=== PATIENT | male | born 1990 | race Caucasian/White ===

== ENCOUNTER 2016-11-13 11:37 | Inpatient (IN) | payer MEDICAID ==
[2016-11-13 12:18] LABS: BASO # 0.1 K/uL (0.0-0.2); BASO % 0.9 % (0.0-2.0); EOS # 0.5 K/uL (0.0-0.7); EOS % 6.6 % (0.0-4.0); HEMATOCRIT 39.5 % (35.0-51.0); LYMPH # 2.2 K/uL (1.0-4.3); MEAN CELL VOLUME 90.1 fL (80.0-94.0); MEAN CORPUSCULAR HEMOGLOBIN 30.7 pg (27.0-31.0); MEAN PLATELET VOLUME 9.8 fL (7.2-11.7); MONO # 0.5 K/uL (0.0-0.8); MONO % 6.3 % (0.0-10.0); NRBC % 0.1 % (0.0-2.0); RED CELL DISTRIBUTION WIDTH 12.7 % (11.5-14.5); WHITE BLOOD COUNT 7.8 K/uL (4.8-10.8)
[2016-11-13 12:28] LABS: CHLORIDE 104 mmol/L (98-107)
[2016-11-13 12:29] LABS: POTASSIUM 3.6 mmol/L (3.6-5.2); SODIUM 141 mmol/L (132-148)
[2016-11-13 12:31] LABS: ALB/GLOB RATIO 1.4 (1.0-2.1); ALKALINE PHOSPHATASE 58 U/L (38-126); AST/SGOT 30 U/L (17-59); BILIRUBIN,TOTAL 0.3 mg/dL (0.2-1.3); BLOOD UREA NITROGEN 9 mg/dL (9-20); CARBON DIOXIDE 27 mmol/L (22-30); GFR AFRICAN-AMERICAN > 60; TOTAL PROTEIN 6.4 g/dL (6.3-8.3)
[2016-11-13 12:32] LABS: ALCOHOL SERUM < 10 mg/dl (0-10); ALT/SGPT 31 U/L (21-72); CALCIUM 8.6 mg/dl (8.6-10.4); GLUCOSE,RANDOM 124 mg/dL (75-110)
--- NOTE | 2016-11-13 14:24 | C.PDOC ---
History Of Present Illness 26 y/o male presents to the ED requesting detox from Xanax. Family at bedside, states not aware patient took any medications today. Pt states he last took Xanax last night. No physical complaints at this time. Chief Complaint (Nursing): Substance Abuse History Per: Patient Suicide/Self Injury Attempted (Context): None Severity: Mild Involuntary Hold By: None Recent travel outside of the [place]: No Additional History Per: Family Past Medical History Reviewed: Historical Data, Nursing Documentation, Vital Signs Vital Signs: Last Vital Signs Temp 97.9 F 11/13/16 11:51 Pulse 82 11/13/16 16:31 Resp 18 11/13/16 16:31 BP 101/55 L 11/13/16 16:31 Pulse Ox 98 11/13/16 16:31 Family History: States: Unknown Family Hx - Social History Hx Alcohol Use: No Hx Substance Use: Yes Review Of Systems Except As Marked, All Systems Reviewed And Found Negative. Constitutional: Negative for: Fever Cardiovascular: Negative for: Chest Pain Respiratory: Negative for: Shortness of Breath Gastrointestinal: Negative for: Vomiting Neurological: Negative for: Headache Physical Exam - Physical Exam Appears: Non-toxic, No Acute Distress, Other (drowsy) Skin: Warm, Dry, No Rash Head: Atraumatic, Normacephalic Eye(s): bilateral: PERRL, EOMI Nose: Normal Oral Mucosa: Moist Neck: Normal ROM Chest: Symmetrical Cardiovascular: Rhythm Regular, No Murmur Respiratory: Normal Breath Sounds, No Rales, No Rhonchi, No Wheezing Gastrointestinal/Abdominal: Normal Exam, Soft, No Tenderness Extremity: Normal ROM Extremity: Bilateral: Atraumatic Neurological/Psych: Oriented x3 ED Course And Treatment - Laboratory Results Result Diagrams: 11/13/16 12:15 11/13/16 12:15 O2 Sat by Pulse Oximetry: 97 (on room air) Pulse Ox Interpretation: Normal Medical Decision Making Medical Decision Making: Plan: UDS, UA, CRISIS evaluation Disposition - Disposition Disposition Time: 19:00 Condition: UNKNOWN - Clinical Impression Clinical Impression: Drug abuse, Drug dependence - Scribe Statement The provider has reviewed the documentation as recorded by the [place] Provider Attestation: All medical record entries made by the [place]anca were at my direction and personally dictated by me. I have reviewed the chart and agree that the record accurately reflects my personal performance of the history, physical exam, medical decision making, and the department course for this patient. I have also personally directed, reviewed, and agree with the discharge instructions and disposition. Physician Patient Turnover Patient Signed Over To: Esther Calvo Handoff Comments: crisis dispo
[2016-11-13 15:21] LABS: RBC URINE 1 /hpf (0-3); URINE BILIRUBIN NEGATIVE (NEGATIVE); URINE BLOOD NEGATIVE (NEGATIVE); URINE COLOR Yellow (YELLOW); URINE GLUCOSE (UA) NORMAL (Normal); URINE KETONE NEGATIVE (NEGATIVE); URINE LEUKOCYTE ESTERASE NEG Leu/uL (Negative); URINE PROTEIN NEGATIVE (NEGATIVE); WBC URINE 1 /hpf (0-5)
[2016-11-13] MEDS ORDERED: Buprenorphine Hydrochloride 8 mg SL ONE (21:02)
[2016-11-13] MEDS ORDERED: Aluminum Hydroxide/Magnesium Hydroxide Susp (30 mL) PO PRN (23:50)
[2016-11-14] MEDS: Buprenorphine Hydrochloride 8 mg SL SCH ×2 (11:07→17:32)
[2016-11-14] MEDS ORDERED: Buprenorphine Hydrochloride 8 mg SL ONE (20:55)
[2016-11-14] MEDS: Bacitracin/Neomycin/Polymyxin Oint(30GM) TOP PRN (21:41)
--- NOTE | 2016-11-14 23:18 | PCM.PSYCH ---
Initial Psychiatric Evaluation - Initial Psychiatric Evaluation Type of Admission: Voluntary Legal Status: Capacity Chief Complaint (in patient's own words): "Too much xanax" History of Present Illness and Precipitating Events: The pt is seen with the team, chart reviewed and case discussed. This is a 26 yo WM, single, no child, redman, lives with a room mate He is here for xanax dependence - he claims on average he takes 20 of the 2 mg but at times he did take 40 tablets per day. He started long ago but last few weeks it escalated a lot. He had seizures in the past. 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 Family psych hx: none Current Medications: Active Medications Generic Name Dose Route Start Last Admin Trade Name Shona PRN Reason Stop Dose Admin Acetaminophen 650 mg 11/13/16 23:50 Tylenol 325mg Tab PO Q4H PRN Fever greater than 101 F Al Hydrox/Mg Hydrox/Simethicone 30 ml 11/13/16 23:50 Maalox 30 Ml PO TID PRN Indigestion / Heartburn Buprenorphine HCl 8 mg 11/14/16 10:00 11/14/16 17:32 Subutex SL 8 mg BID REBECA Administration Chlordiazepoxide 25 mg 11/13/16 20:55 11/13/16 21:11 Librium PO 25 mg Q4H PRN Administration Alcohol Withdrawal Chlordiazepoxide 50 mg 11/14/16 12:00 11/14/16 17:32 Librium PO 11/19/16 11:59 50 mg Q6 REBECA Administration Taper Clonidine HCl 0.1 mg 11/13/16 23:40 Catapres PO Q4H PRN Symptoms of alcohol withdrawl Gabapentin 400 mg 11/14/16 14:00 11/14/16 17:32 Neurontin PO 400 mg TID REBECA Administration Hydroxyzine HCl 25 mg 11/13/16 21:04 Atarax PO Q6 PRN Anxiety Loperamide HCl 2 mg 11/13/16 23:50 Imodium PO Q8 PRN Diarrhea Neomycin/Polymyxin/Bacitracin 0 gm 11/14/16 13:02 11/14/16 21:41 Neosporin Triple Antibiotic Oint TOP 1 mg BID PRN Administration ABRASION Nicotine 1 patch 11/14/16 10:15 11/14/16 11:07 Nicoderm Cq TD 1 patch DAILY REBECA Administration Ondansetron HCl 4 mg 11/13/16 23:50 Zofran Tab PO Q8 PRN Nausea/Vomiting Pseudoephedrine HCl 60 mg 11/13/16 23:50 Sudafed Tab PO QID PRN Nasal/Sinus Congestion Quetiapine Fumarate 200 mg 11/14/16 22:00 11/14/16 21:42 Seroquel PO 200 mg HS REBECA Administration Trazodone HCl 100 mg 11/14/16 22:00 11/14/16 21:43 Desyrel PO 100 mg HS PRN Administration Insomnia Past Psychiatric History - Past Psychiatric History Previous Treatment History: None Pertinent Medical Hx (Current Medical&Sleep Prob, Allergies): Allergies Allergy/AdvReac Type Severity Reaction Status Date / Time No Known Allergies Allergy Verified 11/13/16 11:56 QUEtiapine [SEROquel] 1 tab PO HS 11/13/16 Suboxone 8 mg-2 mg Sl Film 1 tab PO BID 11/13/16 Review of Systems - Neurological Neurological: UNREMARKABLE - Psychiatric Psychiatric: Abnormal Sleep Pattern, Anxiety, Irritability. absent: Hallucinations, Homicidal Ideation, Suicidal Ideation Mental Status Examination - Personal Presentation Personal Presentation: Looks stated age - Affect Affect: Broad - Motor Activity Motor Activity: Calm - Reliability in Providing Information Reliability in Providing Information: Good - Speech Speech: Organized - Mood Mood: Anxious - Formal Thought Process Formal Thought Process: No Impairment - Cognitive Functions Orientation: Person, Place, Situation, Time Sensorium: Alert Attention/Concentration: Attentive Estimate of Intelligence: Average Judgement: Intact, as evidence by: Insight regarding need for hospitalization Memory: Recent intact, as evidence by: Ability to recall events of the day, Remote intact, as evidenced by: Abilit to recall sig. 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
[2016-11-15] MEDS: Buprenorphine Hydrochloride 8 mg SL SCH ×2 (10:05→18:10)
--- NOTE | 2016-11-15 14:54 | PCM.PYCHPN ---
Psychiatric Progress Note - Psychiatric Progress Note Patient seen today, length of contact: 16 min Patient Chief Complaint: "I'm doing much better!" Problems Identified/Issues Discussed: The pt is seen, chart reviewed, case discussed with staff. The pt is compliant with medications and reports no side-effects. Symptoms are improving but needs more time to stabilize. No seizures. After care discussed, support and psychoeducation given. MD and CBT used briefly. Medication Change: Yes (detox changes daily) Medical Record Reviewed: Yes Mental Status Examination - Cognitive Function Orientation: Person, Place, Situation, Time Memory: Intact Attention: WNL Concentration: WNL Association: WNL Fund of Knowledge: WNL - Mood Mood: Anxious - Affect Affect: Broad - Speech Speech: Appropriate - Formal Thought Process Formal Thought Process: No Impairment - Suicidal Ideation Suicidal Ideation: No - Homicidal Ideation Homicidal Ideation: No Goal/Treatment Plan - Goal/Treatment Plan Need for Continued Stay: Discharge may exacerbated symptoms, Severe functional impairment Progress Toward Problem(s) and Goals/Treatment Plan: Librium detox Gabapentin As needed meds MD for abstinence refer to IOP MJ Gabapentin MD Tobacco MD Patch ILYA Lexapro seroquel for insomnia CBT Estimated Date of D/C: 11/17/16
[2016-11-16] MEDS: Buprenorphine Hydrochloride 8 mg SL SCH ×2 (09:38→17:49)
--- NOTE | 2016-11-16 12:37 | PCM.PYCHPN ---
Psychiatric Progress Note - Psychiatric Progress Note Patient seen today, length of contact: 16 min Patient Chief Complaint: i am feeling better Problems Identified/Issues Discussed: Patient seen and evaluated, chart reviewed and discussed with the nurse. Patient reports improvement in his mood and reports improvement in the withdrawal symptoms. he still reports anxiety and headaches. Patient denies any suicidal ideation or homicidal ideation. He is tolerating the withdrawal medications and denies any side effects. Supportive therapy and psychoeducation were given. Medication Change: Yes (detox changes daily) Medical Record Reviewed: Yes Mental Status Examination - Cognitive Function Orientation: Person, Place, Situation, Time Memory: Intact Attention: WNL Concentration: WNL Association: WNL Fund of Knowledge: WNL - Mood Mood: Anxious - Affect Affect: Broad - Speech Speech: Appropriate - Formal Thought Process Formal Thought Process: No Impairment - Suicidal Ideation Suicidal Ideation: No - Homicidal Ideation Homicidal Ideation: No Goal/Treatment Plan - Goal/Treatment Plan Need for Continued Stay: Discharge may exacerbated symptoms, Severe functional impairment Progress Toward Problem(s) and Goals/Treatment Plan: 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
[2016-11-16] MEDS: Bacitracin/Neomycin/Polymyxin Oint(30GM) TOP PRN (17:51)
[2016-11-17 04:40] VITALS: O2SAT 99
[2016-11-17] MEDS: Buprenorphine Hydrochloride 8 mg SL SCH (09:01)
--- NOTE | 2016-11-17 09:20 | PCM.PYCHDC ---
Mental Status Examination - Mental Status Examination Orientation: Person, Place, Situation, Time Memory: Intact Mood: Neutral Speech: Soft Attention: WNL Concentration: WNL Association: WNL Fund of Knowledge: WNL Formal Thought Process: No Impairment Description of patient's judgement and insight: good, fair Psychotic Thoughts and Behaviors: denies any AVH Suicidal Ideation: No Current Homicidal Ideation?: No Discharge Summary - Discharge Note Reason for Hospitalization: This is a 26 yo WM, single, no child, redman, lives with a room mate He is here for xanax dependence - he claims on average he takes 20 of the 2 mg but at times he did take 40 tablets per day. He started long ago but last few weeks it escalated a lot. He had seizures in the past. Some dr advised lamictal but not taking it He was also using heroin in the past but he is clean with 16 mg suboxone now ( confirmed) Smokes Mj at times and cigarette 1 ppd Denies alcohol and other drugs Detox once long ago, rehab 3 years ago in [facility] Consultations:: List each consultation separately and include: 1. Reason for request. 2. Findings. 3. Follow-up Summary of Hospital Course include:: 1. Description of specific treatment plan utilized for patients during their course of treatmen. 2. Summarize the time- course for resolution of acute symptoms and/or regressed behaviors. 3. Describe issues identified and worked on during hospitalization. 4. Describe medication utilized. 5. Describe medical problems identified and treated. 6. Reassessment of suicide risk Summary of Hospital Course: During the course of his stay, patient (pt) started progressively improving and he no longer remained anxious and irritable. He tolerated the withdrawal protocol very well. He didnt have any shakes, sweating or any other withdrawal symptoms. He started attending groups and meetings and started socializing. Denied any feelings of hopelessness, helplessness, and worthlessness, denied any problem with the sleep or appetite, denied suicidal ideation or homicidal ideation. Pt denied any auditory or visual hallucinations. Patient remained calm and cooperative and remained compliant with the medications. Patient tolerated the detox medications very well and denied any side effects. 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 Pt was educated and counseled about the risks of drinking and abusing drugs. Pt was educated and counseled to go to the ER or call 911 if pt develop suicidal ideation or homicidal ideation, worsening of symptoms or severe side effects of the meds. Prescriptions/Medication Reconciliation: Gabapentin [Neurontin] 400 mg PO TID #90 cap QUEtiapine [SEROquel] 200 mg PO HS #30 tab - Smoking Cessation Smoking Cessation Medication prescribed: No - Antipsychotic Medications Pt discharged on 2 or more routine antipsychotic medications: No
[2016-11-17 10:47] VITALS: BP 111/70; PULSE 58; RESP 20; TEMP 97.3
[2016-11-19 06:29] LABS: BUPRENORPHRINE 380 ng/mL (<2); NORBUPRENORPHINE >1000 ng/mL (<2)
== END 2016-11-17 09:20 | disposition home or self-care (01) | DRG 748 ==
LOC: C.ER 11:37 → C.7D 19:09
PROVIDERS: ADMIT Psychiatry & Neurology Psychiatry; ATTEND Psychiatry & Neurology Psychiatry
PROC: HZ2ZZZZ Detoxification Services for Substance Abuse Treatment (ICD-10-PCS; principal; 2016-11-14)
PROC: HZ36ZZZ Individual Counseling for Substance Abuse Treatment, Psychoeducation (ICD-10-PCS; 2016-11-14)
PROC: HZ46ZZZ Group Counseling for Substance Abuse Treatment, Psychoeducation (ICD-10-PCS; 2016-11-14)
PROC: HZ59ZZZ Individual Psychotherapy for Substance Abuse Treatment, Supportive (ICD-10-PCS; 2016-11-14)
DX: F13.239 Sedative, hypnotic or anxiolytic dependence with withdrawal, unspecified (principal); G40.89 Other seizures; F41.1 Generalized anxiety disorder; G47.00 Insomnia, unspecified; F12.90 Cannabis use, unspecified, uncomplicated; F60.9 Personality disorder, unspecified; F17.200 Nicotine dependence, unspecified, uncomplicated